=== PATIENT | male | born 1995 | race Caucasian/White ===

== ENCOUNTER 2023-12-13 16:04 | Inpatient (IN) ==
--- NOTE | 2023-12-13 16:16 | ED Triage Note ---
Date of Service December 13, 2023 Provider in Triage Author: Tez Moody History of Present Illness This patient was briefly evaluated while in triage. An abbreviated physical exam was performed. This patient is a 28-year-old Male who presents to the ED for evaluation of fatigue, twitching, and insomnia. is tearful and states he needs mental health eval. He denies any SI/HI. Has seen his PCP, psych, and neuro recently for these symptoms. Physical Exam CONSTITUTIONAL: No acute distress. Well appearing. RESPIRATORY: Nonlabored breathing. NEUROLOGIC: Alert and oriented X 4 with normal affect. Normal speech. Normal gait observed. Initial orders for labs and / or imaging were placed and patient was placed in the waiting area until a bed is available. Please see further documentation for the full ED course.
[2023-12-13 16:50] LABS: Basophils # (auto) 0.03 K/uL (0.00-0.20); Basophils % (auto) 0.4 %; Eosinophils # (auto) 0.06 K/uL (0.00-0.50); Eosinophils % (auto) 0.9 %; Hematocrit (blood only) 45.5 % (42.0-52.0); Hemoglobin 15.2 g/dl (14.0-18.0); Immature Granulocytes # (auto) 0.01 K/uL (0.01-0.20); Immature Granulocytes % (auto) 0.1 %; Lymphocytes # (auto) 1.68 K/uL (1.20-3.40); Lymphocytes % (auto) 24.8 %; Mean Corpuscular Hemoglobin 27.8 pg (25.0-34.0); Mean Corpuscular Hgb Conc 33.4 g/dL (32.0-36.0); Mean Corpuscular Volume 83.3 fL (80.0-100.0); Monocytes # (auto) 0.42 K/uL (0.11-0.59); Monocytes % (auto) 6.2 %; Neutrophils # (auto) 4.58 K/uL (1.40-6.50); Neutrophils % (auto) 67.6 %; Platelet Count 365 K/uL (130-400); RDW Coefficient of Variation 12.3 % (11.5-14.5); RDW Standard Deviation 37.4 fL (36.4-46.3); Red Blood Count 5.46 M/uL (4.70-6.10); White Blood Count 6.78 K/ul (4.8-10.8)
[2023-12-13 16:53] LABS: Appearance Urine Clear (Clear); Bilirubin Urine Negative (Negative); Blood Urine Negative (Negative); Color Urine Yellow; Glucose Urine UA Negative (Negative); Ketones Urine 2+ (Negative); Leukocyte Esterase Urine Negative (Negative); Nitrite Urine Negative (Negative); Protein Urine Negative (Negative); Specific Gravity Urine 1.016 (1.000-1.030); Urobilinogen Urine Negative (Negative); pH Urine 6.5 (4.5-7.5)
[2023-12-13 17:03] LABS: Albumin Level 5.3 gm/dl (3.4-5.0); Bilirubin,Total 1.7 mg/dl (0.2-1.0); Creatinine Clr Calc Pharmacy 120.2 ml/min; Est GFR (African American) 103.4 ml/min; Est GFR (Non-African American) 89.3 ml/min; Globulin 2.7 gm/dl (2.5-4.0); Potassium 4.1 mmol/L (3.5-5.1)
[2023-12-13 17:11] LABS: Acetaminophen < 3 ug/ml (10-30); Salicylate < 3.0 mg/dl (3.0-30)
[2023-12-13 17:17] LABS: Thyroid Stimulating Hormone 1.799 uIu/ml (0.300-4.500)
[2023-12-13 17:41] LABS: Amphetamines+Metham, Urine Neg (Neg); Barbiturates, Urine Neg (Neg); Benzodiazepine, Urine Neg (Neg); Cocaine, Urine Neg (Neg); MDMA (Ecstacy), Urine Neg (Neg); Marijuana, Urine Neg (Neg); Methadone, Urine Neg (Neg); Opiate, Urine Neg (Neg); Phencyclidine, Urine Neg (Neg)
--- NOTE | 2023-12-13 21:55 | Emergency Department Note ---
History of Present Illness General Chief complaint: Mental Health Evaluation Stated complaint: MENTAL HEALTH PHILLIP, 302 Time Seen by Provider: 12/13/23 16:19 History of Present Illness Provider complaint: Mental health evaluation Maximum Pain Intensity: 7 28-year-old male presents emergency department for mental health evaluation. Patient states he has been sleeping even less over the last 2 weeks. He reports increased fatigue. He stated Klonopin was helping him but is no longer helping him. He reports no suicidal homicidal ideation. Home Medications Medication Instructions Recorded Confirmed Type cetirizine 10 mg tablet (Zyrtec) 10 mg PO DAILY PRN Congestion 11/21/23 12/13/23 History levothyroxine 25 mcg capsule 25 mcg PO DAILY 11/21/23 12/13/23 History triamcinolone acetonide 55 mcg 1 spray intranasal DAILY PRN flare 11/26/23 12/13/23 History nasal spray aerosol paroxetine HCl 10 mg tablet (Paxil) 10 mg PO DAILY #30 tabs 11/29/23 12/13/23 Rx ergocalciferol (vitamin D2) 1,250 50,000 unit PO .weekly #8 caps 11/30/23 12/13/23 Rx mcg (50,000 unit) capsule omeprazole 20 mg capsule,delayed 20 mg PO DAILY 2 months #60 caps 11/30/23 12/13/23 Rx release thiamine HCl (vitamin B1) 100 mg 100 mg PO DAILY #30 tabs 12/04/23 12/13/23 Rx tablet clonazepam 0.5 mg tablet (Klonopin) See Rx Instructions .Route 12/13/23 12/13/23 Rx .COMPLEX #90 tabs Allergies Allergy/AdvReac Type Severity Reaction Status Date / Time No Known Allergies Allergy Verified 11/30/23 11:36 Past Med/Surg History Medical History Vitamin D deficiency Hypothyroid Tinnitus of both ears Eustachian tube dysfunction Surgical History [place] teeth extracted Family History Aunt Breast cancer Family/Other Myocardial infarction great grandfather paternal Father No problems noted. Mother No problems noted. 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 Feels Safe at Home: Yes Diet: regular Diet Comment: regular caffeine: Yes during the past year weight has: remained stable Dental Care, Regularly: Yes Physical Activity Frequency: 3-4 Times per Week Seatbelt Use: always Sunscreen Use: Yes Gender Identity: Male Physical Exam Vital Signs Vital Signs - 24 hr 12/13/23 16:09 12/13/23 18:29 12/13/23 20:00 Temperature 36.5 C Temperature Source Temporal Artery Scan Pulse Rate 94 H Pulse Rate [Finger] 80 71 Pulse Rhythm [Finger] Pulse Strength [Finger] Respiratory Rate 20 18 18 Respiratory Effort / Characteristics Non-Labored Spontaneous Non-Labored Spontaneous Respiratory Depth Normal Normal Respiratory Pattern Regular Blood Pressure 141/82 H Blood Pressure [Left Arm] 149/92 H 135/92 Blood Pressure Mean 101 Blood Pressure Mean [Left Arm] 111 106 Blood Pressure Position [Left Arm] Sitting Pulse Oximetry 98 98 97 Oxygen Delivery Method Room Air Room Air Room Air Sepsis Recent Fever Within 48 Hours No Sepsis New/Unexplained Change in Mental Status N/A Sepsis Action Taken by Nursing No Action Required 12/13/23 23:00 Temperature Temperature Source Pulse Rate Pulse Rate [Finger] 78 Pulse Rhythm [Finger] Regular Pulse Strength [Finger] Normal Respiratory Rate 18 Respiratory Effort / Characteristics Non-Labored Spontaneous Respiratory Depth Normal Respiratory Pattern Regular Blood Pressure Blood Pressure [Left Arm] 133/92 Blood Pressure Mean Blood Pressure Mean [Left Arm] 105 Blood Pressure Position [Left Arm] Sitting Pulse Oximetry 98 Oxygen Delivery Method Room Air Sepsis Recent Fever Within 48 Hours Sepsis New/Unexplained Change in Mental Status Sepsis Action Taken by Nursing Physical Exam GENERAL: oriented to person, place, and time. Patient appears very tired. HENT: Exam performed. - Head: Normocephalic and atraumatic. EYES: Conjunctivae and EOM are normal. Right eye exhibits no discharge. Left eye exhibits no discharge. No scleral icterus. NECK: Normal range of motion. Neck supple. No JVD present. CV: Normal rate, regular rhythm, normal heart sounds and intact distal pulses. There is no peripheral edema. Palpable radial pulses bue. PULM/CHEST: Effort normal and breath sounds normal. No respiratory distress. No stridor. no wheezes. no rales. ABD: The abdomen is soft. There is no tenderness. NEURO: Motor and sensation grossly intact. SKIN: Skin is warm and dry. He is not diaphoretic. PSYCH: No suicidal homicidal ideation. Course Course 161: The patient was evaluated in room A7. A complete history and physical exam was performed 1740: Patient medically cleared. Discussed with patient, significant other at bedside, and correctional casework specialist and we all feel that the patient would be best suited for inpatient psychiatric treatment given he has not been doing well with outpatient treatments. 2347: Patient accepted to 3 S. Medical Decision Making Medical Records Attestation: I reviewed the patient's medical records. External medical records reviewed. This is the patient's third visit to the emergency department for similar symptoms. Patient has had negative head CTs in the last month. MRI of the brain done this week was negative. Patient has had 3 outpatient visits to his PCP for similar complaints also. Laboratory Data Attestation: I reviewed the patient's lab results. 12/13/23 16:26 12/13/23 16:26 Lab Results 12/13/23 12/13/23 12/13/23 Range/Units 16:22 16:26 Unknown WBC 6.78 (4.8-10.8) K/ul RBC 5.46 (4.70-6.10) M/uL Hgb 15.2 (14.0-18.0) g/dl Hct 45.5 (42.0-52.0) % MCV 83.3 (80.0-100.0) fL MCH 27.8 (25.0-34.0) pg MCHC 33.4 (32.0-36.0) g/dL RDW Std Deviation 37.4 (36.4-46.3) fL RDW Coeff of Allyn 12.3 (11.5-14.5) % Plt Count 365 (130-400) K/uL MPV 10.0 (9.4-12.4) fL Immature Gran % (Auto) 0.1 % Neut % (Auto) 67.6 % Lymph % (Auto) 24.8 % [place] % (Auto) 6.2 % Eos % (Auto) 0.9 % Baso % (Auto) 0.4 % Neut # (Auto) 4.58 (1.40-6.50) K/uL Lymph # (Auto) 1.68 (1.20-3.40) K/uL [place] # (Auto) 0.42 (0.11-0.59) K/uL Eos # (Auto) 0.06 (0.00-0.50) K/uL Baso # (Auto) 0.03 (0.00-0.20) K/uL Immature Gran # (Auto) 0.01 (0.01-0.20) K/uL Sodium 138 (136-145) mmol/L Potassium 4.1 (3.5-5.1) mmol/L Chloride 103 (98-107) mmol/L Carbon Dioxide 27 (21-32) mmol/L Anion Gap 8 (3-11) BUN 10 (6-23) mg/dl Creatinine 1.11 (0.6-1.4) mg/dl Est Cr Clr Drug Dosing 120.2 ml/min Est GFR ( Amer) 103.4 ml/min Est GFR (Non-Af Amer) 89.3 ml/min BUN/Creatinine Ratio 9.0 L (10-20) Glucose 92 (70-99(Fasting)) mg/dl Calcium 10.0 (8.6-10.3) mg/dl Total Bilirubin 1.7 H (0.2-1.0) mg/dl AST 14 (13-39) U/L ALT 10 (7-52) U/L Alkaline Phosphatase 41 (34-104) U/L Total Protein 8.0 (6.0-8.3) gm/dl Albumin 5.3 H (3.4-5.0) gm/dl Globulin 2.7 (2.5-4.0) gm/dl Albumin/Globulin Ratio 2.0 (0.9-2) TSH 1.799 (0.300-4.500) uIu/ml Urine Color Yellow Urine Appearance Clear (Clear) Urine pH 6.5 (4.5-7.5) Ur Specific [place] 1.016 (1.000-1.030) Urine Protein Negative (Negative) Urine Glucose (UA) Negative (Negative) Urine Ketones 2+ H (Negative) Urine Blood Negative (Negative) Urine Nitrite Negative (Negative) Urine Bilirubin Negative (Negative) Urine Urobilinogen Negative (Negative) Ur Leukocyte Esterase Negative (Negative) Salicylates < 3.0 L (3.0-30) mg/dl Urine Opiates Screen Neg (Neg) Ur Methadone, Qual Neg (Neg) Acetaminophen < 3 L (10-30) ug/ml Urine Barbiturates Neg (Neg) Ur Phencyclidine (PCP) Neg (Neg) U Amphetamin/Meth Scrn Neg (Neg) MDMA (Ecstasy) Screen Neg (Neg) U Benzodiazepines Scrn Neg (Neg) Ur Cocaine Metabolite Neg (Neg) U Marijuana (THC) Screen Neg (Neg) Ethyl Alcohol mg/dL < 10.0 (<10.0) mg/dl SARS-CoV-2, RNA, NAAT NEGATIVE (NEGATIVE) MDM Narrative 1619: The patient was evaluated in room A7. A complete history and physical exam was performed 1740: Patient medically cleared. Discussed with patient, significant other at bedside, and correctional casework specialist and we all feel that the patient would be best suited for inpatient psychiatric treatment given he has not been doing well with outpatient treatments. 2347: Patient accepted to 3 S. Impression & Plan Anxiety Discharge Plan Visit Data Chief Complaint: Mental Health Evaluation Stated Complaint: MENTAL HEALTH EVAL, 302 ED Provider: Tez Moody Discharge Problem: Anxiety Patient Disposition: Admitted As Inpatient Forms Stand Alone Forms: [facility], Suicide Prevention Resources Prescriptions Prescriptions: No Action paroxetine HCl [Paxil] 10 mg tablet 10 mg PO DAILY Qty: 30 2RF thiamine HCl (vitamin B1) 100 mg tablet 100 mg PO DAILY Qty: 30 3RF cetirizine [Zyrtec] 10 mg tablet 10 mg PO DAILY PRN (Reason: Congestion) levothyroxine 25 mcg capsule 25 mcg PO DAILY triamcinolone acetonide 55 mcg aerosol,spray 1 spray intranasal DAILY PRN (Reason: flare) Rx Instructions: administer into each nostril ergocalciferol (vitamin D2) 1,250 mcg (50,000 unit) capsule 50,000 unit PO .weekly Qty: 8 0RF omeprazole 20 mg capsule,delayed release(DR/EC) 20 mg PO DAILY 60 Days Qty: 60 0RF clonazepam [Klonopin] 0.5 mg tablet See Rx Instructions .ROUTE .COMPLEX Qty: 90 0RF Rx Instructions: Take 1 tab PO in AM, 2 tabs PO qhs; Referrals Referrals: Melani Sharma DO [Primary Care Provider] -
[2023-12-14] MEDS ORDERED: BISMUTH SUBSALICYLATE LIQD 236 ML PO PRN (00:25)
[2023-12-14] MEDS ORDERED: hydrOXYzine HCl 25 MG TAB PO PRN (00:25)
[2023-12-14] MEDS ORDERED: ACETAMINOPHEN 325 MG TAB PO PRN (00:25)
[2023-12-14] MEDS ORDERED: ALUMINUM/MAGNESIUM SUSP 30 ML UDC PO PRN (00:25)
[2023-12-14] MEDS ORDERED: MAGNESIUM HYDROXIDE SUSP 30 ML UDC PO PRN (00:25)
[2023-12-14] MEDS ORDERED: SODIUM CHLORIDE 0.65% NA SOLN 45 ML (OCEAN) PRN (00:25)
[2023-12-14] MEDS: clonazePAM 1 MG TAB PO STA (00:51)
[2023-12-14] MEDS: hydrOXYzine HCl 25 MG TAB PO PRN (04:16)
[2023-12-14] MEDS ORDERED: CETIRIZINE HCL 10 MG TABLET PO PRN (07:49)
[2023-12-14] MEDS: LEVOTHYROXINE SODIUM 25 MCG TABLET PO SCH (09:17)
[2023-12-14] MEDS: THIAMINE HCL 100 MG TAB PO SCH (09:20)
[2023-12-14] MEDS: PANTOprazole 40 MG TAB PO SCH (09:20)
[2023-12-14] MEDS: ERGOCALCIFEROL 1250 MCG (50,000 UNITS) CAP PO SCH (09:33)
[2023-12-14] MEDS ORDERED: GABAPENTIN 100 MG CAP PO PRN (13:37)
[2023-12-14] MEDS ORDERED: ZOLPIDEM TARTRATE 10 MG TAB PO PRN (13:38)
--- NOTE | 2023-12-14 13:40 | History & Physical ---
Date of Service December 14, 2023 Impression / Recommendations Impression 28 yo male with acute onset of tinnitus in October resulting in disrupted sleep, other somatic complaints (?neuropathy with twitching and paresthesias). given the resulting insomnia, he has been treated empirically for anxiety/depression pending additional neurologic work up, the delay in which is one of his stressors as he has been unable to return to work. Overall, I spent a total of 58 minutes with this case, including review of chart, review of records, direct evaluation of the patient, counseling the patient, ordering medication, coordination with nursing,coordination of care with outpatient provider, team meeting, risk assessment, and documentation. (1) Anxiety: (2) Tinnitus of both ears: Plan 12/14/23: The patient was [facility] ([facility]) on q15 min checks. The patient will participate in group, recreational, and milieu therapies and will be offered additional individual and family sessions as clinically appropriate. Paxil was just started and low dose but may have side effects/discontinuation phenomena that may complicate work up by neurology. In an effort to limit controlled substance Klonopin (which is only marginally effective at 1 mg) reviewed risks/benefits/alternatives re: neurontin for hs off label of sleep, anxiety, and possible neuropathy. Patient should likely have heavy metal panel to further explore occupational exposure, diesel exhaust fluid is not considered a hazard based on internet search and no ingestion of antifreeze. His symptoms have only progressed in his time off of work. Staff were able to work with neurology to move up his EMG appointment to 12/17/23. Inventory Assets Strengths: help seeking, motivated to return to work Needs: improve coping. 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 Chief Complaint "I was fine until everything fell apart in October." History of Present Illness ED course and history by CM reviewed: Met with patient and his significant other for a MH evaluation on this date. Patient reports significant increase in anxiety/depression over the last three weeks. Patient has made several attempts to help control his current symptoms with PCP, MRI and visit to ED, but has been unsuccessful. Patient reports severe lack of sleep, stating he has been sleeping 1-2 hours a night for the last three weeks. 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 Patient's significant other was very emotional during eval. Patient was very flat and had little affect. He appeared guarded and did not offer much information, but stressed that he was interested in inpatient treatment. Patient denies any SI. No SIB. No previous inpatient treatment. Patient reports recent weight loss due to decreased appetite. Patient reports one prior panic attack in which he was taken to a hospital via ambulance, this was traumatic for him. Patient is on MH medication but feels no signs of improvement are showing. Patient reports social drinking, but states no substance use. Patient's significant other states patient is not at his baseline as normally he is the "life of the green party" and recently he has been withdrawn and unable to function. Patient reports no aggression, no violence. He reports no prior history of depression/mental health. Patient reports no abuse, and the only trauma he states he feels he has gone through is his parent's divorce. Comfirmed hx with patient who states that his condition started with severe tinnitus in mid to late October and since that time he has had little relief. He has been unable to work and sleep is disrupted. His repeated trips to the ED and PCP have resulted in no specific diagnosis and although he denies anxiety and depression at baseline, he notes upset that he is unable to work or sleep. Prednisone was tried initially for presumed labrynthitis but his symptoms progress to include muscle twitching (upper and lower extremity bilaterally) and then tingling or parasthesias and PCP notes reflect work finding difficulties. He tested negative for lyme disease, ESR and DIEGO are normal. No evidence of anemia. PCP Dr. Sharma was contacted and stated no heavy metals. 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 He was started on Paxil 10 mg earlier this month. There is also a prescription for Seroquel listed which he hasn't picked up yet. Of note, the patient notes fatigue, low motivation, variable appetite and concentration. He appears flat and is very worried about his ability to function. His workplace granted additional PTO. 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 Past Psychiatric History Current Psychiatric Diagnosis: depression, anxiety Outpatient Services: none Previous Psych Admissions: none Do You Have Access To A Gun?: No History of Previous Suicide Attempt: No Past Medication Trials: see HPI Allergies Allergy/AdvReac Type Severity Reaction Status Date / Time No Known Allergies Allergy Verified 11/30/23 11:36 Home Medications Medication Instructions Recorded Confirmed Type cetirizine 10 mg tablet (Zyrtec) 10 mg PO DAILY PRN Congestion 11/21/23 12/13/23 History levothyroxine 25 mcg capsule 25 mcg PO DAILY 11/21/23 12/13/23 History triamcinolone acetonide 55 mcg 1 spray intranasal DAILY PRN flare 11/26/23 12/13/23 History nasal spray aerosol paroxetine HCl 10 mg tablet (Paxil) 10 mg PO DAILY #30 tabs 11/29/23 12/13/23 Rx ergocalciferol (vitamin D2) 1,250 50,000 unit PO .weekly #8 caps 11/30/23 12/13/23 Rx mcg (50,000 unit) capsule omeprazole 20 mg capsule,delayed 20 mg PO DAILY 2 months #60 caps 11/30/23 12/13/23 Rx release thiamine HCl (vitamin B1) 100 mg 100 mg PO DAILY #30 tabs 12/04/23 12/13/23 Rx tablet clonazepam 0.5 mg tablet (Klonopin) See Rx Instructions .Route 12/13/23 12/13/23 Rx .COMPLEX #90 tabs hydroxyzine pamoate 25 mg capsule 25 - 50 mg PO HS PRN 12/14/23 12/14/23 History anxiety/insomnia quetiapine 50 mg tablet 50 mg PO HS 12/14/23 12/14/23 History Family History Family History of: Doesn't Know Family Mental Health History Comment: dad- 'probably drinks more than he should' Alcohol History Hx of Alcohol Use Over the Past 12 Months: No AUDIT Total Score: 5 Smoking Use Have You Smoked or Used Tobacco Products in the Last 30 Days: No Smoking Status: Never smoker Substance History Hx of Prescription Med Misuse Over the Past 12 Months: No Hx of Over the Counter Med Misuse Over the Past 12 Months: No Hx of Inhalent Misuse Over the Past 12 Months: No Hx of Organic Substance Use Over the Past 12 Months: No Hx of Illegal Substances/Street Drug Use Over Past 12 Months: No Problems as a Result of Past Substance Use: None Identified Personal History Living Arrangements: Home Highest Grade Completed: High School Graduate Highest Grade Completed Comment: 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 Other Number Of Children: 0 Beliefs That Will Affect Care: None Current Legal Problems: No Hx Traumatic Life Events: No (other than parent's divorce) Patient History Medical History Vitamin D deficiency Hypothyroid Tinnitus of both ears Eustachian tube dysfunction Surgical History [place] teeth extracted Family History Aunt Breast cancer Family/Other Myocardial infarction great grandfather paternal Father No problems noted. Mother No problems noted. 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 Feels Safe at Home: Yes Diet: regular Diet Comment: regular caffeine: Yes during the past year weight has: remained stable Dental Care, Regularly: Yes Physical Activity Frequency: 3-4 Times per Week Seatbelt Use: always Sunscreen Use: Yes Gender Identity: Male Assistive Devices: None Review of Systems Review of Systems: All systems reviewed & are unremarkable except as noted in HPI & below Physical Exam Psychiatric: Orientation: alert and oriented x 3 Apperance: appropriately dressed and appropriately groomed Eye Contact: good eye contact Motor Behavior: no abnormal motor movements Speech: normal rate/rhythm/volume of speech Affect: + depressed affect Mood: + depressed mood Thought Process: goal directed thought process Thought Content: reality based without delusions Suicidal Thoughts: denies suicidal thoughts Homicidal Thoughts: denies homicidal thoughts Hallucinations: no auditory hallucinations and no visual hallucinations Cognition: attention grossly intact and language grossly intact Estimated Intelligence: consistent with education level Insight: + fair insight Judgment: + fair judgement Vital Signs (Past 24 Hours): Last Vital Signs Temp 36.5 C 12/14/23 06:44 Pulse 77 12/14/23 06:45 Resp 16 12/14/23 06:44 BP 131/89 12/14/23 06:45 Pulse Ox 99 12/14/23 01:05 O2 Del Method Room Air 12/14/23 01:05 Results & Data ([facility]) Laboratory Results Laboratory Results - last 24 hr 12/13/23 12/13/23 12/13/23 16:22 16:26 Unknown WBC 6.78 RBC 5.46 Hgb 15.2 Hct 45.5 MCV 83.3 MCH 27.8 MCHC 33.4 RDW Std Deviation 37.4 RDW Coeff of Allyn 12.3 Plt Count 365 MPV 10.0 Immature Gran % (Auto) 0.1 Neut % (Auto) 67.6 Lymph % (Auto) 24.8 [place] % (Auto) 6.2 Eos % (Auto) 0.9 Baso % (Auto) 0.4 Neut # (Auto) 4.58 Lymph # (Auto) 1.68 [place] # (Auto) 0.42 Eos # (Auto) 0.06 Baso # (Auto) 0.03 Immature Gran # (Auto) 0.01 Sodium 138 Potassium 4.1 Chloride 103 Carbon Dioxide 27 Anion Gap 8 BUN 10 Creatinine 1.11 Est Cr Clr Drug Dosing 120.2 Est GFR ( Amer) 103.4 Est GFR (Non-Af Amer) 89.3 BUN/Creatinine Ratio 9.0 L Glucose 92 Calcium 10.0 Total Bilirubin 1.7 H AST 14 ALT 10 Alkaline Phosphatase 41 Total Protein 8.0 Albumin 5.3 H Globulin 2.7 Albumin/Globulin Ratio 2.0 TSH 1.799 Urine Color Yellow Urine Appearance Clear Urine pH 6.5 Ur Specific [place] 1.016 Urine Protein Negative Urine Glucose (UA) Negative Urine Ketones 2+ H Urine Blood Negative Urine Nitrite Negative Urine Bilirubin Negative Urine Urobilinogen Negative Ur Leukocyte Esterase Negative Salicylates < 3.0 L Urine Opiates Screen Neg Ur Methadone, Qual Neg Acetaminophen < 3 L Urine Barbiturates Neg Ur Phencyclidine (PCP) Neg U Amphetamin/Meth Scrn Neg MDMA (Ecstasy) Screen Neg U Benzodiazepines Scrn Neg Ur Cocaine Metabolite Neg U Marijuana (THC) Screen Neg Ethyl Alcohol mg/dL < 10.0 SARS-CoV-2, RNA, NAAT NEGATIVE Current Inpatient Medications Current Inpatient Medications: Current Inpatient Medications Acetaminophen (Acetaminophen 325 Mg Tab) 650 mg PO Q4H PRN PRN Reason: Headache or Minor Fever Stop: 01/13/24 00:24 Al Hydrox/Mg Hydrox/Simethicone (Aluminum/Magnesium Susp 30 Ml Udc) 30 ml PO Q4H PRN PRN Reason: GI Upset Stop: 01/13/24 00:24 Bismuth Subsalicylate (Bismuth Subsalicylate Liqd 236 Ml) 15 ml PO PRN PRN PRN Reason: Loose Stool Stop: 01/13/24 00:24 Cetirizine HCl (Cetirizine Hcl 10 Mg Tablet) 10 mg PO DAILY PRN PRN Reason: Congestion Stop: 01/13/24 07:48 Ergocalciferol (Ergocalciferol 1250 Mcg (50,000 Units) Cap) 1,250 mcg PO Fr@0900 JOSUE Stop: 01/13/24 09:14 Last Admin: 12/14/23 09:33 Dose: 1,250 mcg Gabapentin (Gabapentin 300 Mg Cap) 300 mg PO HS JOSUE Stop: 01/13/24 21:59 Gabapentin (Gabapentin 100 Mg Cap) 100 mg PO Q4 PRN PRN Reason: Anxiety Stop: 01/13/24 15:59 Levothyroxine Sodium (Levothyroxine Sodium 25 Mcg Tablet) 25 mcg PO DAILYBB JOSUE Stop: 01/13/24 07:59 Last Admin: 12/14/23 09:17 Dose: 25 mcg Magnesium Hydroxide (Magnesium Hydroxide Susp 30 Ml Udc) 30 ml PO DAILY PRN PRN Reason: Constipation Stop: 01/13/24 00:24 Pantoprazole Sodium (Pantoprazole 40 Mg Tab) 40 mg PO DAILY JOSUE Stop: 01/13/24 08:59 Last Admin: 12/14/23 09:20 Dose: 40 mg Sodium Chloride (Sodium Chloride 0.65% Na Soln 45 Ml ([place])) 1 - 2 sprays NA P RN PRN PRN Reason: Nasal Dryness/Congestion Stop: 01/13/24 00:24 Thiamine HCl (Thiamine Hcl 100 Mg Tab) 100 mg PO DAILY JOSUE Stop: 01/13/24 08:59 Last Admin: 12/14/23 09:20 Dose: 100 mg Zolpidem Tartrate (Zolpidem Tartrate 10 Mg Tab) 10 mg PO HS PRN PRN Reason: Sleep Stop: 01/13/24 13:37
[2023-12-14] MEDS: GABAPENTIN 300 MG CAP PO SCH (21:40)
[2023-12-15] MEDS: ZOLPIDEM TARTRATE 5 MG TAB PO PRN (00:59)
--- NOTE | 2023-12-15 11:28 | Psychiatric Progress Note ---
Date of Service December 15, 2023 Impression / Recommendations Impression 28 yo male with acute onset of tinnitus in October resulting in disrupted sleep, other somatic complaints (?neuropathy with twitching and paresthesias). given the resulting insomnia, he has been treated empirically for anxiety/depression pending additional neurologic work up, the delay in which is one of his stressors as he has been unable to return to work. Overall I spent total of 63 minutes with the patient, with the treatment team discussing his case, and in reviewing the medical record. I suppose that a conversion reaction cannot be totally ruled out, given the patient's history that suggest someone who has been highly responsible and hard-working. The context is that he and his girlfriend have taken on the responsibility of the mortgage on a new house that they have built, and he is telling me that he and his girlfriend were getting ready to start having children. While the patient really proud of the accomplishment says that he has made (a 29, after pain to build a new house, he also has enough savings in the bank to his expenses for at least 8 months), it may be that he is unconsciously overwhelmed by the prospect of having to work long hours and very hard and order to afford the new home, in order to continue to edge of the savings, and to the idea of taking on the responsibility of children. Described to the patient, one of his first episodes involved in having to pull his truck over and park it because he was not feeling well, and that he had both of his hands cramp up so that he could not move them (as would be required to use a steering wheel in a vehicle). Nevertheless, I do not believe this is a conversion reaction. I believe that the best explanation is that the patient has had heavy metal exposure or is experiencing some other primary neurological problem. He deserves a full neurological workup. However, I do not believe that today he is ready for discharge because he still is not sleepingactually slept somewhat better last night with the assistance of Ambien. The degree of his insomnia is such that it poses a significant risk to the patient physical health, and I expect to keep the patient in the hospital for at least 1 more day and no more to the point, at least 1 more night to see if we cannot reliably increase the patient's ability to sleep. (1) Anxiety: 12/15/23: Continue Ambien. Add Xanax 1 mg HS. Goal is to increase sleep before discharge. Present on Admission?: Yes (2) Tinnitus of both ears: Plan 12/25/23:I have made a medication adjustment today. He will be given Ambien as a standing dose medication tonight (Ambien 10 mg) and I have convinced him to take Ambien when offered. Have also added 1 mg of alprazolam, also as a standing dose, to be taken tonight at bedtime, when offered by staff. Inventory Assets Strengths: help seeking, motivated to return to work, reasonable insight. Good judgment. Needs: improve coping. education re: somatic symptoms Suicide Risk Level Suicide Risk Level: Low (q15 min observation checks) Suicide Risk Level Comments: Patient is currently future oriented. He has no history of suicidality, no history of intentionally causing self-injurious behaviors. The patient convincingly denies thoughts of suicide. 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 Seb Weinsetin is a 28-year-old man who presents with a number of symptoms that appear to be primarily neurologic in nature. However, within this context, he is experiencing some depression, and a primary psychiatric concern at this point is persistent insomnia, generally with no more than 2 hours of sleep, even with sleep aids. Chief Complaint "Stop being able to function, except minimally.". Review of Systems Notes No change. Sleep Information Total Hours of Sleep: 4,015 Sleep Comments: Required PRN Ambien at 0100 Meal Information Percent Meal Consumed - Breakfast: 100 Percent Meal Consumed - Lunch: 90 Percent Meal Consumed - Dinner: 100 Subjective Subjective Patient was seen & assessed and interval progress reviewed with nursing and social work. I met individually with the patient in order to assess his current mental status, evaluate his response to treatment, and to address issues and concerns that may arise. Patient began by reviewing his history with me. 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 Within this capacity, he frequently not only drives a truck, but helps load and then unload the chemicals at their various destinations. Furthermore, he drives the same truck, and says that he sometimes can detect exhaust fumes in the cabin of the truck. Mr. Weinstein notes that several years ago he had some episodes during which he experienced fairly sudden onset of weakness and "just not feeling good." In 1 instance, he was (professionally) operating a truck when he began to feel sick. He pulled the truck over, got out of the truck, and then felt himself start to "cramp up," by which he meant that the muscles of his extremities seem to lock so that he was temporarily unable to move his hands or other portions of his body. This resolved, and he was able to continue on his journey. April 2023 he began to notice "very loud" tenderness in his ears. He describes the experience as consisting of various sounds, including ringing in his ears (bilaterally), or at other times buzzing sound, bilaterally. He notes that the sounds were generally loud, but not so loud as to drown out conversations, and he said that he could still hear the sound of the horn honking while he was driving his truck. Mr. Weinstein reports that he has always worked hard to keep himself in good physical shape. He has at home and him, and worked out regularly. Prior to last summer, he notes that he was able to bench press 300 pounds and completed a full workout without becoming exhausted. However, beginning summer, he began to notice a gradual diminution in his physical problems. The problem progressed to the point that he found that he was unable to perform a single pull-up in his home gym, and eventually was too weak to do any of his weightlifting activities. He also began to notice that he was unable to perform simple tasks around the house. He and his girlfriend had recently built a house, and there were a number of relatively small test that needed to be attended to around the house. He tells me that he even found the difficult and taxing to take out the trash. He does not identify any precipitants, such as might be associated with a conversion reaction. He tells me that he had enjoyed his job (prior to the onset of the above symptoms), his relationship with his girlfriend had been "excellent," and, as noted, the patient and his girlfriend had recently built a new house, took ownership, and had moved into it. He and his girlfriend are also planning to start having children, and he tells me, convincingly, that he was extremely excited about the prospects of living in a new home, and starting a family. He denies childhood traumas, and tells me that his parents are very supportive. He also notes that he had saved up enough money over the years (ironically, by working hard as a otr flatbed company truck driver that involved him hauling toxic chemicals) that he has enough savings, even after a down payment on the new house, to cover living expenses for at least about the next 8 months. 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 However, if anything, his neurologic symptoms seem to have gotten worse. He acknowledges that he is frightened, discouraged, and very worried about his future given his deficits and his current inability to work. He describes himself as being highly conscientious, and says that he feels like a failure now that he cannot perform as he had previously. Mr. Weinstein also acknowledges that he feels that his current situat ion has caused some friction in his relationship with his girlfriend, but patient is to repeat that problems in the relationship did not predate the onset and deterioration of his identified target symptoms. Complicating the situation significantly is the fact that the patient says that for at least the past month he has not been able to sleep, or has not been able to sleep more than about 2 hours a night, even when given milligram of clonazepam as a sleep aid.'s he notes that with clonazepam he may have occasionally had 3 hours of sleep at night.) Last night, after some hesitation, he took Ambien after midnight and he believes that he may have slept between 4 and 5 hours with Ambien 10 mg. Most of what the patient talked about today, however, is the fact that he is very worried about his future, and wonders what will happen if he is not able to work because he and his girlfriend will not be able to make mortgage payments on their home he is on disability, and they cannot afford to pay the mortgage within about 8 more months through his personal savings. At the same time, the patient does acknowledge that his parents will almost certainly help him out financially so that he will not lose the house, but he says that he will feel very bad asking them to do this, particularly if there is no reasonable expectation that he will recover. Summary of Past History Patient reports that he has no premorbid psychiatric history Medication Trials Mr. Hodges medications have been tried by his primary care physician. These include clonazepam and gabapentin. Physical Exam Mental Examination Appearance: Well Groomed Eye Contact: No Eye Contact Motor Behavior: Slowed Speech: Soft and Delayed Mood: Depressed, Anxious and Sad Affect: Anxious, Calm, Flat, Nervous, Sad and Withdrawn Thought Process: Intact Insight: Fair Judgement: Fair Psychiatric Orientation: alert and oriented x 3 The patient is oriented to person, place, time and situation. Apperance: appropriately dressed and appropriately groomed The patient is appropriately dressed and groomed. He appears to be of a healthy body weight. Eye Contact: good eye contact The patient maintains good eye contact throughout the interview. Motor Behavior: no abnormal motor movements No abnormal involuntary movements are noted. Speech: normal rate/rhythm/volume of speech The patient's speech is slightly slowed and somewhat soft. Affect: + depressed affect Rest, although he brightens and smiles appropriate several times during the encounter. When discussing the toll that this unexpected turn of events has had on him, he cried softly on 2 occasions. Mood: + depressed mood Patient is mood is depressed, but points out that he thinks that everyone would be depressed after a fairly rapid progression from being a healthy, "productive member of society," in someone with a very positive future, to an individual who finds himself largely disabled. Thought Process: goal directed thought process Patient's thought processes demonstrate tight associations. His thoughts are goal oriented and logical. Thought Content: reality based without delusions Patient's thought content is devoid of any evidence of psychotic features. He focuses largely on his concerns about his future, and what his current symptoms may have on his ability to fulfill his goal of starting a family with his girlfriend (children) and his ability to continue to afford the house that he and his girlfriend recently built together (through a contractor). Suicidal Thoughts: denies suicidal thoughts Patient reports that he does not have thoughts of suicide. He has no history of suicidal ideation, and he also reports history of intentional self injuries. Homicidal Thoughts: denies homicidal thoughts Patient reports that he does not have any thoughts of homicide, and has never had any thoughts of homicide. Also, he notes that he has never intentionally because physical harm to the personal property of others. Hallucinations: no auditory hallucinations and no visual hallucinations The patient experiences tinnitus, but does not hear voices. He reports that he has never had visual or tactile hallucinations, and I see no evidence that what he is saying is not the case. Cognition: attention grossly intact and language grossly intact The patient is a good historian. His immediate, short-term, and long-term memory is grossly intact. Estimated Intelligence: consistent with education level Above average Insight: + fair insight Good Judgment: + fair judgement Good Vital Signs (Past 24 Hours) Last Vital Signs Temp 36.6 C 12/15/23 06:42 Pulse 54 L 12/15/23 06:42 Resp 16 12/15/23 06:42 BP 138/88 12/15/23 06:45 Pulse Ox 96 12/15/23 06:42 O2 Del Method Room Air 12/15/23 06:42 Physical examination completed in the emergency department has been accepted for purposes of admission to the behavioral health unit. Results & Data ([facility]) Current Inpatient Medications Current Inpatient Medications: Current Inpatient Medications Acetaminophen (Acetaminophen 325 Mg Tab) 650 mg PO Q4H PRN PRN Reason: Headache or Minor Fever Stop: 01/13/24 00:24 Al Hydrox/Mg Hydrox/Simethicone (Aluminum/Magnesium Susp 30 Ml Udc) 30 ml PO Q4H PRN PRN Reason: GI Upset Stop: 01/13/24 00:24 Alprazolam (Alprazolam 0.5 Mg Tablet) 1 mg PO HS JOSUE Stop: 01/14/24 21:59 Bismuth Subsalicylate (Bismuth Subsalicylate Liqd 236 Ml) 15 ml PO PRN PRN PRN Reason: Loose Stool Stop: 01/13/24 00:24 Cetirizine HCl (Cetirizine Hcl 10 Mg Tablet) 10 mg PO DAILY PRN PRN Reason: Congestion Stop: 01/13/24 07:48 Ergocalciferol (Ergocalciferol 1250 Mcg (50,000 Units) Cap) 1,250 mcg PO Fr@0900 JOSUE Stop: 01/13/24 09:14 Last Admin: 12/14/23 09:33 Dose: 1,250 mcg Gabapentin (Gabapentin 300 Mg Cap) 300 mg PO HS JOSUE Stop: 01/13/24 21:59 Last Admin: 12/14/23 21:40 Dose: 300 mg Gabapentin (Gabapentin 100 Mg Cap) 100 mg PO Q4 PRN PRN Reason: Anxiety Stop: 01/13/24 15:59 Levothyroxine Sodium (Levothyroxine Sodium 25 Mcg Tablet) 25 mcg PO DAILYBB JOSUE Stop: 01/13/24 07:59 Last Admin: 12/15/23 08:54 Dose: 25 mcg Magnesium Hydroxide (Magnesium Hydroxide Susp 30 Ml Udc) 30 ml PO DAILY PRN PRN Reason: Constipation Stop: 01/13/24 00:24 Pantoprazole Sodium (Pantoprazole 40 Mg Tab) 40 mg PO DAILY JOSUE Stop: 01/13/24 08:59 Last Admin: 12/15/23 08:54 Dose: 40 mg Sodium Chloride (Sodium Chloride 0.65% Na Soln 45 Ml ([facility])) 1 - 2 sprays NA PRN PRN PRN Reason: Nasal Dryness/Congestion Stop: 01/13/24 00:24 Thiamine HCl (Thiamine Hcl 100 Mg Tab) 100 mg PO DAILY JOSUE Stop: 01/13/24 08:59 Last Admin: 12/15/23 08:54 Dose: 100 mg Zolpidem Tartrate (Zolpidem Tartrate 10 Mg Tab) 10 mg PO HS [facility] Stop: 01/15/24 21:59 Post Discharge Appointments Primary Care Physician Name Of Family Doctor/PCP: [facility] Date of Future Appointment with PCP: 12/18/2023 Time of Appointment with PCP: 4PM Provider Appointment Comment: [address], [address] [place] [address] Neurologist Name of Neurologist: ROSALINE Parks Neurologist's Date of Appointment with Neurologist: 12/18/23 Time of Appointment with Neurologist: 1pm Neurology Appointment Comment: EMG scheduled. They will coordinate future consultation appt at that time Contact Information Discharge Discharge Address: [address] [place] [address] [address] [place] [address]
[2023-12-15] MEDS: PANTOprazole 40 MG TAB PO STA (18:12)
--- NOTE | 2023-12-15 19:25 | Communication Note ---
Date of Service: December 15, 2023 I telephoned the patient's girlfriend (domestic partner) at her request, and with the patient's expressed permission. He acknowledged that he had authorized her to access his medical record at [facility]. I spoke with the girlfriend, Ms. Wendy Coreas, and she provided very helpful additional information regarding the patient's history and presentation. She tells me that her main fear is that he will be "brushed off" and not taken seriously. Her belief is that his underlying problem is not related to exposure to toxic sub stances on the job, despite the fact that she agrees that it seems reasonable to consider this as a possibility. However, she tells me that she feels it is very important for us to understand that her boyfriend's has become progressively worse in the past month. When it was mentioned that he began to experience tinnitus last summer, and had certain somatic symptoms as long ago as 2 years ago, she said that he never mention tenderness to her at any point, until recently. She said that he seemed to have a new physical complaint almost every day. Sometimes it was that he could not move properly. Sometimes it was that he was experiencing balance difficulties. Sometimes he would suddenly say that he could not swallow. Many of the patient's complaints reportedly arose spontaneously and resolved in favor of other complaints. This is not inconsistent with what we have been seeing in the patient's behaviors on the unit today. Ms. Coreas also reports that she has been extraordinarily worried because the patient has been essentially catastrophizing each of his symptoms as a present, and has become convinced that he has either amyotrophic lateral sclerosis, multiple sclerosis, or possibly Habersham's disease. He has attempted to take out additional life insurance policies "secretly" so as to make sure that she has enough money to be able to hold onto the house "after he dies" of some dreaded degenerative neuromuscular disease. Acknowledges that, course, he could have toxic exposure to chemicals, and he also could have some degenerative neurological disorder. However, she, like I, did not see evidence that the patient is ataxic, has any issues with his balance, does not seem to present with any sort of weakness when moving objects or carrying a tray. We also did not witness the tremors which the patient speaks, and he is able to hear most talk to him in the low tone of voice, despite his insistence that he has "very loud tinnitus." This afternoon, the patient came to the nursing station door, asked to speak to me, and told me that he had just thrown up in the bathroom. I asked him if he was feeling nauseated or is experiencing indigestion. At that point, the patient had not eaten anything since lunch and it was after 4 PM. He also had not taken any medication since the morning. He told me that he was not nauseated and simply was standing by the toilet when without warning he threw up. He tells me that, the vomitus appeared to consist of mucus, and that his esophagus feels as if it is filled with mucus. Not long afterwards, the patient came back to the nursing station and said that he had again had spontaneously vomited. As requested, he allowed the nurse to examine it, and she reported that the vomitus did appear to be a small amount and co ntained mucus and a small amount of the broth that the patient had had for dinner moments earlier. (I ordered as needed Maalox and an extra dose of Protonix 40 mg.) While talking to the patient's girlfriend, she described him in terms that had occurred to me as well. He tends to be overly conscientious, extremely hard-working, and repeatedly says that he wants to be "a good and productive citizen." She also agrees that he works too hard, and that they have had significant stresses a couple as they went through the process of building a new home. After I explained what a conversion reaction is and what illness anxiety disorder is, Ms. Coreas tells me that she believes that she suspects that this is exactly what is going on. Namely, that he has worried himself into a state of extreme anxiety about the possibility that he could have a terminal neuromuscular disease such as ALS or MS or Habersham's (illness anxiety disorder), and, she would also endorse the idea that the patient's presenting somatic symptoms may be related to a sort of "safety valve" in a man who is overly responsible, works too hard, and is ashamed to admit that he is overwhelmed. Accordingly, while I am hoping that a good night sleep tonight will help him, I am not recommending discharge tomorrow. Instead, we need to focus on treating illness anxiety disorder. I plan to speak again with the patient about the possibility of adding an antidepressant to help him as he passes through "a very stressful period "in his life. Hopefully, this will relieve his anxiety, and reduce his obsessional focus on the possibility that he has a carotid disease. I met with the patient again this evening and explained the above information, talk to him about the possibility of illness anxiety disorder and conversion reactions. The patient listened carefully and told me that he would keep an open mind about it. For him, the issue is that he actually feels the physical complaints and I assured him multiple times that no one is suggesting that the symptoms "all in his head." He was able to hear me when I told him that the symptoms will feel very real and that something physically actually is wrongbut it is a complex function of anxiety, rather than an underlying degenerative neurological disease. He tells me that he feels strongly that he would still like to have the EMG and the neurology consult on Sunday (12/18/2023). I explained that he would need to be discharged from the hospital in order for that to occur. He said that he would agree to stay in the hospital and continue treatment here, but would prefer to be discharged in time for the appointment on Sunday, and then continue his treatment on an outpatient basis. Discussed this with the treatment team in the morning.
[2023-12-15] MEDS: ZOLPIDEM TARTRATE 5 MG TAB PO SCH (21:43)
[2023-12-15] MEDS: ALPRAZolam 0.5 MG TABLET PO SCH (21:43)
[2023-12-15] MEDS ORDERED: ZOLPIDEM TARTRATE 10 MG TAB PO SCH (22:00)
[2023-12-16] MEDS: SERTRALINE HCL 100 MG TABLET PO SCH (08:32)
--- NOTE | 2023-12-16 14:20 | Psychiatric Progress Note ---
Date of Service December 16, 2023 Impression / Recommendations Impression 28 yo male with acute onset of tinnitus in October resulting in disrupted sleep, other somatic complaints (?neuropathy with twitching and paresthesias). given the resulting insomnia, he has been treated empirically for anxiety/depression pending additional neurologic work up, the delay in which is one of his stressors as he has been unable to return to work. Overall I spent total of 63 minutes with the patient, with the treatment team discussing his case, and in reviewing the medical record. I suppose that a conversion reaction cannot be totally ruled out, given the patient's history that suggest someone who has been highly responsible and hard-working. The context is that he and his girlfriend have taken on the responsibility of the mortgage on a new house that they have built, and he is telling me that he and his girlfriend were getting ready to start having children. While the patient really proud of the accomplishment says that he has made (a 29, after pain to build a new house, he also has enough savings in the bank to his expenses for at least 8 months), it may be that he is unconsciously overwhelmed by the prospect of having to work long hours and very hard and order to afford the new home, in order to continue to edge of the savings, and to the idea of taking on the responsibility of children. Described to the patient, one of his first episodes involved in having to pull his truck over and park it because he was not feeling well, and that he had both of his hands cramp up so that he could not move them (as would be required to use a steering wheel in a vehicle). Nevertheless, I do not believe this is a conversion reaction. I believe that the best explanation is that the patient has had heavy metal exposure or is experiencing some other primary neurological problem. He deserves a full neurological workup. However, I do not believe that today he is ready for discharge because he still is not sleepingactually slept somewhat better last night with the assistance of Ambien. The degree of his insomnia is such that it poses a significant risk to the patient physical health, and I expect to keep the patient in the hospital for at least 1 more day and no more to the point, at least 1 more night to see if we cannot reliably increase the patient's ability to sleep. (1) Anxiety: 12/16/23: The combination of Ambien and alprazolam last evening was not successful. The patient only slept about 3-1/2 hours, which has been perhaps a little better than his average, but still is quite suboptimal. We are now discontinuing Ambien and alprazolam, and in favor of temazepam 30 mg at bedtime. Material risks, including but not limited to physical habituation and complicated withdrawal, as well as increased risk for falls and accidents since the night, reviewed the patient's and he indicated understanding. 12/15/23: Continue Ambien. Add Xanax 1 mg HS. Goal is to increase sleep before discharge. (2) Tinnitus of both ears: 12/16/2023. Although the patient may have an underlying neurological disorder, and although he may also have a history of heavy metal/toxic exposure job, I am inclined to believe that his somatic symptoms, including tinnitus in both ears, is most likely a result of a somatoform disorder I have added sertraline 100 mg daily, with a plan to titrate as indicated, as a way of addressing the patient's underlying anxieties and obsessional thinking. Plan 12/16/23: The patient tolerated addition of sertraline 100 mg this morning without any noted adverse effects. His early report is that he may be feeling a little less anxious. Also, as noted above, he did not respond favorably to the addition of Ambien and lorazepam taking in advance of the hours of sleep, and so those medications have been discontinued and, with the patient's agreement, and after learning the material risk as well as the anticipated benefits, prazepam 30 mg at bedtime has been ordered, and will begin this evening. 12/15/23:I have made a medication adjustment today. He will be given Ambien as a standing dose medication tonight (Ambien 10 mg) and I have convinced him to take Ambien when offered. Have also added 1 mg of alprazolam, also as a standing dose, to be taken tonight at bedtime, when offered by staff. Inventory Assets Strengths: help seeking, motivated to return to work, reasonable insight. Good judgment. Needs: improve coping. education re: somatic symptoms Suicide Risk Level Suicide Risk Level: Low (q15 min observation checks) Suicide Risk Level Comments: Patient is currently future oriented. He has no history of suicidality, no history of intentionally causing self-injurious behaviors. The patient convincingly denies thoughts of suicide. 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 Seb Weinstein is a 28-year-old man who presents with a number of symptoms that appear to be primarily neurologic in nature. However, within this context, he is experiencing some depression, and a primary psychiatric concern at this point is persistent insomnia, generally with no more than 2 hours of sleep, even with sleep aids. Chief Complaint "I've got a lot of real physical symptoms.". Review of Systems Sleep Information Total Hours of Sleep: 3.30 Sleep Comments: Pt awake at approx. 0215- Received Xanax and Ambien at HS. Meal Information Percent Meal Consumed - Breakfast: 100 Percent Meal Consumed - Lunch: 100 Percent Meal Consumed - Dinner: 100 Nutrition Comment: Attempted to drink beef broth; emesis Medication Trials Mr. Hodges medications have been tried by his primary care physician. These include clonazepam and gabapentin. Subjective Subjective Patient was seen & assessed and interval progress reviewed with the treatment team., I met with the patient in order to assess his response to treatment, evaluate his current mental status examination, make any adjustments in the patient's medication regimen, and address matters that may be rising. Furthermore, I provided a family meeting in anticipation of discharge from the behavioral health unit on 12/18/2023. Present was the patient's girlfriend and domestic partner, Wendy Coreas. Ms. Coreas participated with the patient's expressed permission. The patient had told me earlier in the day that he had not slept in response to Ambien and Xanax at bedtime, at least not more than about 3-1/2 hours. He admits that he lay awake worrying about his physical health and generally feeling anxious. With his girlfriend present, I reviewed with the patient the criteria for the diagnosis of illness anxiety disorder, as well as the criteria for conversion disorder. The patient's girlfriend provided a number of additional examples that supported the idea that the patient is suffering from illness anxiety disorder, and she and the patient both understood the concept of conversion disorder. I gave at least 1 example of another case, and the patient's girlfriend (Ms. Coreas) said that she feels strongly that that is largely what is going on in the case of the patient. She also agreed, as did the patient, that the patient is feeling depressed, it is in response to poor sleep, chronic worries about his health, and the abrupt change in his life circumstances that the present episode has led to. The patient tells me that he has not had any adverse effects associated with sertraline. Fact that he had had emesis 3 times yesterday, and because I had to warn him that GI distress can be a side effect of sertraline, I had thought that it was entirely possible that the patient would tell me that he had thrown up the medication because it caused him to feel nauseated. However, he said that he thought that maybe it was already starting to help. His girlfriend encouraged him by saying that she thought that he looked more relaxed and more happy. I explained that the plan would be for him to possibly titrate the dose on an outpatient basis. I reviewed with the patient and his girlfriend the plans for aftercare. We also discussed the question of when he would be discharged. The patient and his girlfriend are very eager that he be able to keep his a ppointment for an EMG and for neurology consult on 12/18/2023. It was agreed that the patient would be discharged Sunday morning, if all goes according to plan, and in time for him to be able to keep his appointment with neurology. I am very concerned by the fact the patient is sleeping so little, and we are continuing to explore reasons for his complex presenting symptoms. Summary of Past History Patient reports that he has no premorbid psychiatric history Medication Trials Mr. Hodges medications have been tried by his primary care physician. These include clonazepam and gabapentin. Physical Exam Mental Examination Appearance: Well Groomed Eye Contact: No Eye Contact Motor Behavior: Slowed Speech: Soft and Delayed Mood: Depressed, Anxious and Sad Affect: Anxious, Calm, Flat, Nervous, Sad and Withdrawn Thought Process: Intact Insight: Fair Judgement: Fair Psychiatric Orientation: alert and oriented x 3 Apperance: appropriately dressed and appropriately groomed Eye Contact: good eye contact Motor Behavior: no abnormal motor movements Speech: normal rate/rhythm/volume of speech Affect: + depressed affect Mood: + depressed mood Thought Process: goal directed thought process Thought Content: reality based without delusions Suicidal Thoughts: denies suicidal thoughts Homicidal Thoughts: denies homicidal thoughts Hallucinations: no auditory hallucinations and no visual hallucinations Cognition: attention grossly intact and language grossly intact Estimated Intelligence: consistent with education level Insight: + fair insight Judgment: + fair judgement Vital Signs (Past 24 Hours) Last Vital Signs Temp 36.6 C 12/16/23 06:24 Pulse 101 H 12/16/23 06:25 Resp 16 12/16/23 06:24 BP 130/92 12/16/23 06:25 Pulse Ox 98 12/16/23 06:24 O2 Del Method Room Air 12/16/23 06:24 Physical examination completed in the emergency department has been accepted for purposes of admission to the behavioral health unit. Results & Data ([facility]) Current Inpatient Medications Current Inpatient Medications: Current Inpatient Medications Acetaminophen (Acetaminophen 325 Mg Tab) 650 mg PO Q4H PRN PRN Reason: Headache or Minor Fever Stop: 01/13/24 00:24 Al Hydrox/Mg Hydrox/Simethicone (Aluminum/Magnesium Susp 30 Ml Udc) 30 ml PO Q4H PRN PRN Reason: GI Upset Stop: 01/13/24 00:24 Alprazolam (Alprazolam 0.5 Mg Tablet) 1 mg PO [facility] Stop: 01/14/24 21:59 Last Admin: 12/15/23 21:43 Dose: 1 mg Bismuth Subsalicylate (Bismuth Subsalicylate Liqd 236 Ml) 15 ml PO PRN PRN PRN Reason: Loose Stool Stop: 01/13/24 00:24 Cetirizine HCl (Cetirizine Hcl 10 Mg Tablet) 10 mg PO DAILY PRN PRN Reason: Congestion Stop: 01/13/24 07:48 Ergocalciferol (Ergocalciferol 1250 Mcg (50,000 Units) Cap) 1,250 mcg PO Fr@0900 JOSUE Stop: 01/13/24 09:14 Last Admin: 12/14/23 09:33 Dose: 1,250 mcg Gabapentin (Gabapentin 300 Mg Cap) 300 mg PO JOSUE Stop: 01/13/24 21:59 Last Admin: 12/15/23 21:43 Dose: 300 mg Gabapentin (Gabapentin 100 Mg Cap) 100 mg PO Q4 PRN PRN Reason: Anxiety Stop: 01/13/24 15:59 Levothyroxine Sodium (Levothyroxine Sodium 25 Mcg Tablet) 25 mcg PO DAILYBB JOSUE Stop: 01/13/24 07:59 Last Admin: 12/16/23 08:32 Dose: 25 mcg Magnesium Hydroxide (Magnesium Hydroxide Susp 30 Ml Udc) 30 ml PO DAILY PRN PRN Reason: Constipation Stop: 01/13/24 00:24 Pantoprazole Sodium (Pantoprazole 40 Mg Tab) 40 mg PO DAILY JOSUE Stop: 01/13/24 08:59 Last Admin: 12/16/23 08:32 Dose: 40 mg Sertraline HCl (Sertraline Hcl 100 Mg Tablet) 100 mg PO QAM JOSUE Stop: 01/15/24 08:59 Last Admin: 12/16/23 08:32 Dose: 100 mg Sodium Chloride (Sodium Chloride 0.65% Na Soln 45 Ml ([place])) 1 - 2 sprays NA PRN PRN PRN Reason: Nasal Dryness/Congestion Stop: 01/13/24 00:24 Thiamine HCl (Thiamine Hcl 100 Mg Tab) 100 mg PO DAILY JOSUE Stop: 01/13/24 08:59 Last Admin: 12/16/23 08:32 Dose: 100 mg Zolpidem Tartrate (Zolpidem Tartrate 5 Mg Tab) 10 mg PO HS JOSUE Stop: 01/15/24 21:59 Last Admin: 12/15/23 21:43 Dose: 10 mg Post Discharge Appointments Primary Care Physician Name Of Family Doctor/PCP: [facility] Date of Future Appointment with PCP: 12/18/2023 Time of Appointment with PCP: 4PM Provider Appointment Comment: [address] [facility], [address] [place] [address] Neurologist Name of Neurologist: ROSALINE Parks Neurologist's Date of Appointment with Neurologist: 12/18/23 Time of Appointment with Neurologist: 1pm Neurology Appointment Comment: EMG scheduled. They will coordinate future c onsultation appt at that time Contact Information Discharge Discharge Address: [address] [place] [address]., [place] [address]
[2023-12-16] MEDS: TEMAZEPAM 15 MG CAPSULE PO PRN (22:11)
--- NOTE | 2023-12-17 18:36 | Psychiatric Progress Note ---
Date of Service December 17, 2023 Impression / Recommendations Impression 28 yo male with acute onset of tinnitus in October resulting in disrupted sleep, other somatic complaints (?neuropathy with twitching and paresthesias). given the resulting insomnia, he has been treated empirically for anxiety/depression pending additional neurologic work up, the delay in which is one of his stressors as he has been unable to return to work. Overall I spent total of 63 minutes with the patient, with the treatment team discussing his case, and in reviewing the medical record. I suppose that a conversion reaction cannot be totally ruled out, given the patient's history that suggest someone who has been highly responsible and hard-working. The context is that he and his girlfriend have taken on the responsibility of the mortgage on a new house that they have built, and he is telling me that he and his girlfriend were getting ready to start having children. While the patient really proud of the accomplishment says that he has made (a 29, after pain to build a new house, he also has enough savings in the bank to his expenses for at least 8 months), it may be that he is unconsciously overwhelmed by the prospect of having to work long hours and very hard and order to afford the new home, in order to continue to edge of the savings, and to the idea of taking on the responsibility of children. Described to the patient, one of his first episodes involved in having to pull his truck over and park it because he was not feeling well, and that he had both of his hands cramp up so that he could not move them (as would be required to use a steering wheel in a vehicle). Nevertheless, I do not believe this is a conversion reaction. I believe that the best explanation is that the patient has had heavy metal exposure or is experiencing some other primary neurological problem. He deserves a full neurological workup. However, I do not believe that today he is ready for discharge because he still is not sleepingactually slept somewhat better last night with the assistance of Jodiien. The degree of his insomnia is such that it poses a significant risk to the patient physical health, and I expect to keep the patient in the hospital for at least 1 more day and no more to the point, at least 1 more night to see if we cannot reliably increase the patient's ability to sleep. (1) Anxiety: 12/17/23: The patient reports that he remains anxious today, and does not feel as hopeful as he had yesterday. He was active in group this morning, but spent much of the rest of the day laying in bed, without sleeping. His his explanation was that he was "tired." He also reports increase in his physical symptoms, which appear to be primarily anxiety related. Complicating the situation is that the patient did not sleep well last night even though his med ication at bedtime was changed to include temazepam 30 mg. The fact that he only slept for about an hour and a half is puzzling given the dose of temazepam. I advised the patient that tonight I would offer a trial of a combination of diphenhydramine 50 mg and temazepam 45 mg. The patient was in agreement. We again reviewed the risks, and the patient and I both agree that these risks are outweighed by the anticipated benefit. I believe that recovery will be partially dependent upon the patient's ability to get a good night sleep. We are also increasing his dose of sertraline from 100 mg a day to a dose of 150 mg a day, beginning tomorrow. The patient reports that he is tolerating this medication well and has not experienced any adverse effects. 12/16/23: The combination of Ambien and alprazolam last evening was not successful. The patient only slept about 3-1/2 hours, which has been perhaps a little better than his average, but still is quite suboptimal. We are now discontinuing Ambien and alprazolam, and in favor of temazepam 30 mg at bedtime. Material risks, including but not limited to physical habituation and complicated withdrawal, as well as increased risk for falls and accidents since the night, reviewed the patient's and he indicated understanding. 12/15/23: Continue Ambien. Add Xanax 1 mg HS. Goal is to increase sleep before discharge. (2) Tinnitus of both ears: 12/17/23: The patient does not mention tinnitus today, but seem to have no difficulty hearing and this is not included with his list of somatic complaints but we met today. In other words, he reference muscle fasciculation fatigue, weakness, and decreased sensations, but did not mention ringing in his ears. Under the circumstances, I did not prompt the patient by asking, but I feel certain that he would have mentioned it had he been experiencing it.. 12/16/2023. Although the patient may have an underlying neurological disorder, and although he may also have a history of heavy metal/toxic exposure job, I am inclined to believe that his somatic symptoms, including tinnitus in both ears, is most likely a result of a somatoform disorder I have added sertraline 100 mg daily, with a plan to titrate as indicated, as a way of addressing the patient's underlying anxieties and obsessional thinking. Present on Admission?: Yes Plan 12/16/23: The patient tolerated addition of sertraline 100 mg this morning without any noted adverse effects. His early report is that he may be feeling a little less anxious. Also, as noted above, he did not respond favorably to the addition of Ambien and lorazepam taking in advance of the hours of sleep, and so those medications have been discontinued and, with the patient's agreement, and after learning the material risk as well as the anticipated benefits, prazepam 30 mg at bedtime has been ordered, and will begin this evening. 12/15/23:I have made a medication adjustment today. He will be given Ambien as a standing dose medication tonight (Ambien 10 mg) and I have convinced him to take Ambien when offered. Have also added 1 mg of alprazolam, also as a standing dose, to be taken tonight at bedtime, when offered by staff. Inventory Assets Strengths: help seeking, motivated to return to work, reasonable insight. Good judgment. Needs: improve coping. education re: somatic symptoms Suicide Risk Level Suicide Risk Level: Low (q15 min observation checks) Suicide Risk Level Comments: Patient is currently future oriented. He has no history of suicidality, no history of intentionally causing self-injurious behaviors. The patient convincingly denies thoughts of suicide. 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 Seb Weinstein is a 28-year-old man who presents with a number of symptoms that appear to be primarily neurologic in nature. However, within this context, he is experiencing some depression, and a primary psychiatric concern at this point is persistent insomnia, generally with no more than 2 hours of sleep at home for the past three weeks, even with sleep aids. Chief Complaint "I still think that I have a neurological disease like ALS or MS". Review of Systems Sleep Information Total Hours of Sleep: 3.25 Sleep Comments: Pt awake at approx. 0215-received temazepam 30 mg at bedtime. Meal Information Percent Meal Consumed - Breakfast: 100 Percent Meal Consumed - Lunch: 35 Percent Meal Consumed - Dinner: 100 Nutrition Comment: Attempted to drink beef broth; emesis Medication Trials Mr. Hodges medications have been tried by his primary care physician. These include clonazepam and gabapentin. Subjective Subjective Patient was seen & assessed and interval progress reviewed with the treatment team. In addition, I met patient, [id number] in my office in order to assess his current mental status, evaluate his response to treatment, make those changes in the patient's treatment regimen that may be necessary, and respond to matters that may arise. Although inactive participant in a group this morning, and after recent reports from Mr. Weinstein that he was feeling better, in terms of his mood, when I met with him later in the day he told me that he was experiencing an increase in his physical symptoms, such as weakness and tremors. He also said that he was feeling more anxious and more worried about having a potentially fatal chronic neuromuscular disease. During of the encounter today the patient showed me that his calf muscles on his right leg were fasciculating very slightly. This was visible to me. He also showed me his deltoid region of his right shoulder, but I could not see any fasciculations. I did explain to the patient that the fact that I cannot see them does not mean that he is not feeling them. I tried explained to the patient that he is a man who works out at the gym multiple times a week, and has not been able to do so for a while, so that the lack of exercise for the past several weeks may be resulting in certain alterations in his musculature at present. Unfortunately, even with 30 mg of temazepam he only slept about 3-1/2 hours last night. With 1 exception, the patient has not slept significantly more than 3-1/2 hours while on our unit, and while this may be an hour and a half more that he was able to sleep at home, it certainly is not good. I talked the patient about. He and I discussed his plan for an EMG tomorrow at 1 PM here in [place] ([facility] neurology on [address] (at [place]) and [facility]. This is to be followed by an appointment with a neurologist at the same location. He will then have an appointment at 4 PM with his primary care doctor who is located in [place]. I asked the patient that if the neurologist and EMG tells him that there was no evidence of a degenerative neuromuscular disease will he be reassured and stop worrying? The patient smiled and replied "probably not." He continues to reiterate that the symptoms that he is feeling are "real," and he does not seem to be accessible to anyone telling him that such symptoms can and are quite "real," but they are mediated by internal factors, such as illness anxiety and certain somatoform symptoms. Summary of Past History Patient reports that he has no premorbid psychiatric history Medication Trials Mr. Hodges medications have been tried by his primary care physician. These include clonazepam and gabapentin. Physical Exam Mental Examination Appearance: Well Groomed Eye Contact: No Eye Contact Motor Behavior: Slowed Speech: Soft and Delayed Mood: Depressed, Anxious and Sad Affect: Anxious, Calm, Flat, Nervous, Sad and Withdrawn Thought Process: Intact Insight: Fair Judgement: Fair Psychiatric Orientation: alert and oriented x 3 Apperance: appropriately dressed and appropriately groomed Eye Contact: good eye contact Motor Behavior: no abnormal motor movements Speech: normal rate/rhythm/volume of speech Affect: + depressed affect Mood: + depressed mood Thought Process: goal directed thought process Thought Content: reality based without delusions Suicidal Thoughts: denies suicidal thoughts Homicidal Thoughts: denies homicidal thoughts Hallucinations: no auditory hallucinations and no visual hallucinations Cognition: attention grossly intact and language grossly intact Estimated Intelligence: consistent with education level Insight: + fair insight Judgment: + fair judgement Vital Signs (Past 24 Hours) Last Vital Signs Temp 36.7 C 12/17/23 06:36 Pulse 70 12/17/23 06:36 Resp 18 12/17/23 06:36 BP 132/90 12/17/23 06:36 Pulse Ox 98 12/16/23 06:24 O2 Del Method Room Air 12/16/23 06:24 Physical examination completed in the emergency department has been accepted for purposes of admission to the behavioral health unit. Results & Data ([facility]) Current Inpatient Medications Current Inpatient Medications: Current Inpatient Medications Acetaminophen (Acetaminophen 325 Mg Tab) 650 mg PO Q4H PRN PRN Reason: Headache or Minor Fever Stop: 01/13/24 00:24 Al Hydrox/Mg Hydrox/Simethicone (Aluminum/Magnesium Susp 30 Ml Udc) 30 ml PO Q4H PRN PRN Reason: GI Upset Stop: 01/13/24 00:24 Bismuth Subsalicylate (Bismuth Subsalicylate Liqd 236 Ml) 15 ml PO PRN PRN PRN Reason: Loose Stool Stop: 01/13/24 00:24 Cetirizine HCl (Cetirizine Hcl 10 Mg Tablet) 10 mg PO DAILY PRN PRN Reason: Congestion Stop: 01/13/24 07:48 Diphenhydramine HCl (Diphenhydramine Capsule 25 Mg Cap) 50 mg PO HS ONE Stop: 12/17/23 20:49 Ergocalciferol (Ergocalciferol 1250 Mcg (50,000 Units) Cap) 1,250 mcg PO Fr@0900 JOSUE Stop: 01/13/24 09:14 Last Admin: 12/14/23 09:33 Dose: 1,250 mcg Gabapentin (Gabapentin 300 Mg Cap) 300 mg PO HS JOSUE Stop: 01/13/24 21:59 Last Admin: 12/16/23 22:09 Dose: 300 mg Gabapentin (Gabapentin 100 Mg Cap) 100 mg PO Q4 PRN PRN Reason: Anxiety Stop: 01/13/24 15:59 Levothyroxine Sodium (Levothyroxine Sodium 25 Mcg Tablet) 25 mcg PO DAILYBB JOSUE Stop: 01/13/24 07:59 Last Admin: 12/17/23 08:54 Dose: 25 mcg Magnesium Hydroxide (Magnesium Hydroxide Susp 30 Ml Udc) 30 ml PO DAILY PRN PRN Reason: Constipation Stop: 01/13/24 00:24 Pantoprazole Sodium (Pantoprazole 40 Mg Tab) 40 mg PO DAILY JOSUE Stop: 01/13/24 08:59 Last Admin: 12/17/23 08:54 Dose: 40 mg Sertraline HCl (Sertraline Hcl 50 Mg Tablet) 150 mg PO QAM [facility] Stop: 01/17/24 08:59 Sodium Chloride (Sodium Chloride 0.65% Na Soln 45 Ml (Todd)) 1 - 2 sprays NA PRN PRN PRN Reason: Nasal Dryness/Congestion Stop: 01/13/24 00:24 Temazepam (Temazepam 15 Mg Capsule) 45 mg PO HSZ PRN PRN Reason: Insomnia Stop: 01/16/24 15:45 Thiamine HCl (Thiamine Hcl 100 Mg Tab) 100 mg PO DAILY JOSUE Stop: 01/13/24 08:59 Last Admin: 12/17/23 08:55 Dose: 100 mg Mental Health & Subst Abuse Tx Psychiatrist Name of Psychiatrist: Amanda Alvarez PA-C Psychiatrist's Date Of Appointment With Psychiatric Provider: 12/25/2023 Time of Appointment with Psychiatrist: 12:45 Psychiatric Appointment Comment: [address] [place] [address] Post Discharge Appointments Primary Care Physician Name Of Family Doctor/PCP: [facility] Date of Future Appointment with PCP: 12/18/2023 Time of Appointment with PCP: 4PM Provider Appointment Comment: [address] [place] [address] Neurologist Name of Neurologist: ROSALINE Parks Neurologist's Date of Appointment with Neurologist: 12/18/23 Time of Appointment with Neurologist: 1pm Neurology Appointment Comment: EMG scheduled. They will coordinate future consultation appt at that time Contact Information Discharge Discharge Address: [address] [place] [id number]
[2023-12-17] MEDS: diphenhydrAMINE Capsule 25 MG CAP PO ONE (21:40)
[2023-12-17] MEDS: TEMAZEPAM 15 MG CAPSULE PO PRN (22:08)
[2023-12-18] MEDS: SERTRALINE HCL 50 MG TABLET PO SCH (08:37)
--- NOTE | 2023-12-18 08:58 | Discharge Summary ---
Date of Service December 18, 2023 History of Present Illness ED course and history by CM reviewed: Met with patient and his significant other for a MH evaluation on this date. Patient reports significant increase in anxiety/depression over the last three weeks. Patient has made several attempts to help control his current symptoms with PCP, MRI and visit to ED, but has been unsuccessful. Patient reports severe lack of sleep, stating he has been sleeping 1-2 hours a night for the last three weeks. 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 Patient's significant other was very emotional during eval. Patient was very flat and had little affect. He appeared guarded and did not offer much information, but stressed that he was interested in inpatient treatment. Patient denies any SI. No SIB. No previous inpatient treatment. Patient reports recent weight loss due to decreased appetite. Patient reports one prior panic attack in which he was taken to a hospital via ambulance, this was traumatic for him. Patient is on MH medication but feels no signs of improvement are showing. Patient reports social drinking, but states no substance use. Patient's significant other states patient is not at his baseline as normally he is the "life of the republican" and recently he has been withdrawn and unable to function. Patient reports no aggression, no violence. He reports no prior history of depression/mental health. Patient reports no abuse, and the only trauma he states he feels he has gone through is his parent's divorce. Comfirmed hx with patient who states that his condition started with severe tinnitus in mid to late October and since that time he has had little relief. He has been unable to work and sleep is disrupted. His repeated trips to the ED and PCP have resulted in no specific diagnosis and although he denies anxiety and depression at baseline, he notes upset that he is unable to work or sleep. Prednisone was tried initially for presumed labrynthitis but his symptoms progress to include muscle twitching (upper and lower extremity bilaterally) and then tingling or parasthesias and PCP notes reflect work finding difficulties. He tested negative for lyme disease, ESR and DIEGO are normal. No evidence of anemia. PCP Dr. Sharma was contacted and stated no heavy metals. 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 He was started on Paxil 10 mg earlier this month. There is also a prescription for Seroquel listed which he hasn't picked up yet. Of note, the patient notes fatigue, low motivation, variable appetite and concentration. He appears flat and is very worried about his ability to function. His workplace granted additional PTO. 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 He denies spillage or known skin contact exposures but does fuel/load his own truck and is exposed to fumes as well as diesel fuel and exhaust. Physical Exam Psychiatric See admission H&P and DOD assessment. Vital Signs (Past 24 Hours) Last Vital Signs Temp 36.7 C 12/17/23 06:36 Pulse 70 12/17/23 06:36 Resp 18 12/17/23 06:36 BP 132/90 12/17/23 06:36 Pulse Ox 98 12/16/23 06:24 O2 Del Method Room Air 12/16/23 06:24 Principal Diagnosis anxiety disorder Psychiatric Data See daily stay summary. In short, safety was maintained and the patient was cooperative with care. Medication changes included d/c of Klonopin and Paxil in favor of a trial of Zoloft and Neurontin for anxiety/insomnia pending additional neurologic work up. He tolerated this well but reports little benefit though he appeared to function well on the unit and is much less anxious than admission. His girlfriend was involved with his care and he denied SI through out his stay. Dr. Staley offered prn Restoril for sleep and he did have benefit at 45 mg more than 30 mg. He believes he will sleep better at home. He is being discharged to neurology appointment with [facility] and ultimately clearance to drive/return to work is at the discretion of neurology. He is aware that Restoril is also a benzodiazepine and can cause combined sedation with neurontin and other sedating substances. He was given short supplies as meds will likely need further adjustment on an outpatient basis. Reviewed that Restoril should not be stopped abruptly due to risk of dependence and is for short term use pending additional medical work up and care. Day of Discharge Assessment Today the patient voices readiness for discharge. They note improvement in mood and deny thoughts to harm self or others. Thoughts remain organized and they are improved from admission. There is no evidence of psychosis. They agree to take mediations as prescribed and keep follow-up appointments. They are stable for discharge to outpatient level of care. Transition of Care Transition Of Care Record: was reviewed with the patient Advance Directives Advance Directives Information Provided: Yes Advance Directives: No Mental Health Advance Directive: No Advance Directives on File: No Living Will: No Power of Monitoring Manager: No Advance Directives Reason:: Declines as Mental Health Visit. Suicide Risk Level Suicide Risk Level Comments: Patient is currently future oriented. He has no history of suicidality, no history of intentionally causing self-injurious behaviors. The patient convincingly denies thoughts of suicide. 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) Stable Relationships: Yes Supportive Family: Yes Tobacco Cessation at Discharge Tobacco Cessation Medication Prescribed at Discharge: Not Applicable/Non-Smoker Total Time Total Time Spent: Greater Than 30 Minutes (36 min) Discharge Data Lab Results 12/13/23 12/13/23 12/13/23 16:22 16:26 Unknown WBC 6.78 RBC 5.46 Hgb 15.2 Hct 45.5 MCV 83.3 MCH 27.8 MCHC 33.4 RDW Std Deviation 37.4 RDW Coeff of Allyn 12.3 Plt Count 365 MPV 10.0 Immature Gran % (Auto) 0.1 Neut % (Auto) 67.6 Lymph % (Auto) 24.8 Aiken % (Auto) 6.2 Eos % (Auto) 0.9 Baso % (Auto) 0.4 Neut # (Auto) 4.58 Lymph # (Auto) 1.68 Aiken # (Auto) 0.42 Eos # (Auto) 0.06 Baso # (Auto) 0.03 Immature Gran # (Auto) 0.01 Sodium 138 Potassium 4.1 Chloride 103 Carbon Dioxide 27 Anion Gap 8 BUN 10 Creatinine 1.11 Est Cr Clr Drug Dosing 120.2 Est GFR ( Amer) 103.4 Est GFR (Non-Af Amer) 89.3 BUN/Creatinine Ratio 9.0 L Glucose 92 Calcium 10.0 Total Bilirubin 1.7 H AST 14 ALT 10 Alkaline Phosphatase 41 Total Protein 8.0 Albumin 5.3 H Globulin 2.7 Albumin/Globulin Ratio 2.0 TSH 1.799 Urine Color Yellow Urine Appearance Clear Urine pH 6.5 Ur Specific [place] 1.016 Urine Protein Negative Urine Glucose (UA) Negative Urine Ketones 2+ H Urine Blood Negative Urine Nitrite Negative Urine Bilirubin Negative Urine Urobilinogen Negative Ur Leukocyte Esterase Negative Salicylates < 3.0 L Urine Opiates Screen Neg Ur Methadone, Qual Neg Acetaminophen < 3 L Urine Barbiturates Neg Ur Phencyclidine (PCP) Neg U Amphetamin/Meth Scrn Neg MDMA (Ecstasy) Screen Neg U Benzodiazepines Scrn Neg Ur Cocaine Metabolite Neg U Marijuana (THC) Screen Neg Ethyl Alcohol mg/dL < 10.0 SARS-CoV-2, RNA, NAAT NEGATIVE Hospital Course (1) Anxiety: 12/17/23: The patient reports that he remains anxious today, and does not feel as hopeful as he had yesterday. He was active in group this morning, but spent much of the rest of the day laying in bed, without sleeping. His his explanation was that he was "tired." He also reports increase in his physical symptoms, which appear to be primarily anxiety related. Complicating the situation is that the patient did not sleep well last night even though his medication at bedtime was changed to include temazepam 30 mg. The fact that he only slept for about an hour and a half is puzzling given the dose of temazepam. I advised the patient that tonight I would offer a trial of a combination of diphenhydramine 50 mg and temazepam 45 mg. The patient was in agreement. We again reviewed the risks, and the patient and I both agree that these risks are outweighed by the anticipated benefit. I believe that recovery will be partially dependent upon the patient's ability to get a good night sleep. We are also increasing his dose of sertraline from 100 mg a day to a dose of 150 mg a day, beginning tomorrow. The patient reports that he is tolerating this medication well and has not experienced any adverse effects. 12/16/23: The combination of Ambien and alprazolam last evening was not successful. The patient only slept about 3-1/2 hours, which has been perhaps a little better than his average, but still is quite suboptimal. We are now discontinuing Ambien and alprazolam, and in favor of temazepam 30 mg at bedtime. Material risks, including but not limited to physical habituation and complicated withdrawal, as well as increased risk for falls and accidents since the night, reviewed the patient's and he indicated understanding. 12/15/23: Continue Ambien. Add Xanax 1 mg HS. Goal is to increase sleep before discharge. (2) Tinnitus of both ears: 12/17/23: The patient does not mention tinnitus today, but seem to have no diffi culty hearing and this is not included with his list of somatic complaints but we met today. In other words, he reference muscle fasciculation fatigue, weakness, and decreased sensations, but did not mention ringing in his ears. Under the circumstances, I did not prompt the patient by asking, but I feel certain that he would have mentioned it had he been experiencing it.. 12/16/2023. Although the patient may have an underlying neurological disorder, and although he may also have a history of heavy metal/toxic exposure job, I am inclined to believe that his somatic symptoms, including tinnitus in both ears, is most likely a result of a somatoform disorder I have added sertraline 100 mg daily, with a plan to titrate as indicated, as a way of addressing the patient's underlying anxieties and obsessional thinking. Plan 12/16/23: The patient tolerated addition of sertraline 100 mg this morning without any noted adverse effects. His early report is that he may be feeling a little less anxious. Also, as noted above, he did not respond favorably to the addition of Ambien and lorazepam taking in advance of the hours of sleep, and so those medications have been discontinued and, with the patient's agreement, and after learning the material risk as well as the anticipated benefits, prazepam 30 mg at bedtime has been ordered, and will begin this evening. 12/15/23:I have made a medication adjustment today. He will be given Ambien as a standing dose medication tonight (Ambien 10 mg) and I have convinced him to take Ambien when offered. Have also added 1 mg of alprazolam, also as a standing dose, to be taken tonight at bedtime, when offered by staff. Mental Health & Subst Abuse Tx Psychiatrist Name of Psychiatrist: Amanda Alvarez PA-C Psychiatrist's Date Of Appointment With Psychiatric Provider: 12/25/2023 Time of Appointment with Psychiatrist: 12:45 Psychiatric Appointment Comment: [address] [place] [address] Post Discharge Appointments Primary Care Physician Name Of Family Doctor/PCP: [facility]il[facility] Date of Future Appointment with PCP: 12/18/2023 Time of Appointment with PCP: 4PM Provider Appointment Comment: [address], [address] [place] [address] Neurologist Name of Neurologist: [facility] Neurologist's Date of Appointment with Neurologist: 12/18/23 Time of Appointment with Neurologist: 1pm Neurology Appointment Comment: [facility] scheduled. They will coordinate future consultation appt at that time Smoking Cessation Counseling Tobacco Cessation Medication Prescribed at Discharge: Not Applicable/Non-Smoker Contact Information Discharge Discharge Address: [address] [place] [id number] Discharge Plan Discharge Items Patient Disposition: Home - Self-Care Reason For Visit: DEPRESSIVE DISORDER Discharge Diagnosis: anxiety disorder Activity: Resume your previous activity Activity Comment: watch driving with certain medications and follow directions of neurology Non-emergency contact: Primary Care Provider, Neurologist and Psychiatrist Call non-emergency contact if: you have any medication questions and your symptoms worsen Follow-up/Referrals: Melani Sharma, [Primary Care Provider] - Diet: Regular Addtl Attending Provider Instructions: SPECIAL CARE INSTRUCTIONS: 1. Follow through with your scheduled aftercare appointments. If unable to keep an appointment, please call to reschedule. 2. Take your medication only as prescribed. Medication should not be changed or stopped without the approval of your doctor. In the event of worsening symptoms or concerns about side effects, contact your doctor immediately. 3. Utilize new healthy coping skills, anger management skills, and stress management skills learned during your hospitalization. Journal feelings and process them with a support person. Identify stressors or situations that may result in relapse, deterioration or inappropriate behaviors and develop a plan to deal with those issues. 4. If your coping skills are ineffective and you are in crisis, contact your outpatient providers for direction. If unable to reach your providers, please call the [facility] CRISIS LINE AT , go to the [facility] walk-in center at [address], [address], [place], or go to the closest Emergency Room. 5. Avoid alcohol and un-prescribed drugs. 6. You have been provided with the Mental Health Advance Directives Pamphlet for your review. 7. Your condition is stable for discharge to outpatient level of care, but recovery is an ongoing process. Ifthoughts to harm yourself or others return, follow the safety plan developed during your stay. Planning for a safe return home includes securing weapons. Our treatment team recommends weaponsbe removed from the home until your outpatient provider reassesses your progress. In rare cases where the items themselvescannot be removed, guns and ammunitionshould be secured separatelyand keys stored by a reliable personoutside of the home. If you were admitted on an involuntary commitment, the police or other legal authorities may be involved in this process. AFTERCARE APPOINTMENTS: * Please call your insurance company prior to your scheduled appointment to confirm your aftercare providers are covered. Take your insurance information to your appointments. WHO TO CALL AND WHEN: Medical Emergencies: For questions or emergencies related to your hospital stay, please contact the Inpatient Behavioral Health Unit at [phone]. A heavy forger is on-call 21/05 for the Behavioral Health Unit for emergencies At any time you feel your situation is an emergency, you may also call 911 immediately. Pending Studies at Discharge: No Stand-Alone Forms: My [facility], Smoking Cessation Medications and DC Order Prescriptions: New gabapentin 300 mg Capsule 300 mg PO HS Qty: 30 0RF sertraline 100 mg tablet 150 mg PO QAM Qty: 30 0RF temazepam 15 mg Capsule 45 mg PO HSZ PRN (Reason: insomnia) Qty: 30 0RF Continued thiamine HCl (vitamin B1) 100 mg tablet 100 mg PO DAILY Qty: 30 3RF cetirizine [Zyrtec] 10 mg tablet 10 mg PO DAILY PRN (Reason: Congestion) levothyroxine 25 mcg capsule 25 mcg PO DAILY triamcinolone acetonide 55 mcg aerosol,spray 1 spray intranasal DAILY PRN (Reason: flare) Rx Instructions: administer into each nostril ergocalciferol (vitamin D2) 1,250 mcg (50,000 unit) capsule 50,000 unit PO .weekly Qty: 8 0RF Rx Instructions: takes weekly on sunday omeprazole 20 mg capsule,delayed release(DR/EC) 20 mg PO DAILY 60 Days Qty: 60 0RF Discontinued paroxetine HCl [Paxil] 10 mg tablet 10 mg PO DAILY Qty: 30 2RF clonazepam [Klonopin] 0.5 mg tablet See Rx Instructions .ROUTE .COMPLEX Qty: 90 0RF Rx Instructions: Take 1 tab PO in AM, 2 tabs PO qhs; quetiapine 50 mg tablet 50 mg PO HS hydroxyzine pamoate 25 mg capsule 25 - 50 mg PO HS PRN (Reason: anxiety/insomnia) Discharge Orders: Discharge Order (Routine); Ordered 12/18/23 Ordered By: Concepción Leyva Admission Data Admit Date/Time: 12/13/23 23:36 Attending Provider: Concepción Leyva Admit Provider: Concepción Leyva Primary Care Provider: Melani Sharma Coding Level of Care Code 17360 D/C day mgmt > 30 min Diagnoses Anxiety F41.9 Tinnitus of both ears H93.13
== END 2023-12-18 10:53 | disposition home or self-care (01) | DRG 880 ==
LOC: ED 16:04 → 3S 23:36